=== PATIENT | female | born 1990 | race Caucasian/White ===

== ENCOUNTER 2021-03-19 15:04 | Emergency (ER) | payer OTHER ==
[~2021-03-19] VITALS: Ht 172.7 cm; Wt 65.9 kg
[2021-03-19] MEDS ORDERED: ACETAMINOPHEN 500 MG TABLET PO ONE (15:45)
[2021-03-19 16:19] LABS: COVID AG,FIA SOURCE NASOPHARYNGEAL
[2021-03-19 16:57] VITALS: BP 113/75
== END 2021-03-19 18:16 | disposition home or self-care (01) ==
LOC: EMS 15:07
DX: U07.1 COVID-19 (principal); J12.82 Pneumonia due to coronavirus disease 2019; J45.909 Unspecified asthma, uncomplicated
CPT/HCPCS: 71045; 99284